=== PATIENT | female | born 1980 | race Caucasian/White ===

== ENCOUNTER 2018-10-09 04:53 | Inpatient (IN) | payer MEDICAID ==
[2018-10-09] MEDS ORDERED: CARBOPROST 250 MCG INJ IM (06:30)
[2018-10-09] MEDS ORDERED: METHYLERGONOVINE 0.2 MG INJ IM (06:30)
[2018-10-09] MEDS ORDERED: LIDOCAINE 1% (MPF) 30 ML INJ INJ (06:30)
[2018-10-09] MEDS ORDERED: OXYTOCIN 30 UNITS/LR 500 ML IV (06:30)
[2018-10-09] MEDS ORDERED: MISOPROSTOL 200 MCG TAB PR (06:30)
[2018-10-09] MEDS ORDERED: BUTORPHANOL 2 MG INJ IV (06:30)
[2018-10-09] MEDS ORDERED: IBUPROFEN 600 MG TAB PO (06:30)
[2018-10-09] MEDS: LACTATED RINGER'S 1,000 ML IV ×2 (06:56→14:54)
[2018-10-09 07:04] LABS: ADD MAN DIFF? NO
[2018-10-09 07:13] LABS: BASOPHILS % 0.3 % (0.0-2.0); EOSINOPHILS % 0.3 % (0.0-7.0); HEMATOCRIT 38.1 % (37.0-47.0); HEMOGLOBIN 12.9 g/dl (12.0-16.0); LYMPHOCYTES # 1.3 10^3/ul (0.8-2.9); LYMPHOCYTES % 11.4 % (15.0-51.0); MEAN CORPUSCULAR HEMOGLOBIN 32.3 pg (29.0-33.0); MEAN CORPUSCULAR HGB CONC 33.9 g/dl (32.0-37.0); MEAN CORPUSCULAR VOLUME 95.3 fl (82.0-101.0); MONOCYTE # 0.6 10^3/ul (0.3-0.9); MONOCYTES % 5.2 % (0.0-11.0); NEUTROPHIL # 9.2 10^3/ul (1.6-7.5); NEUTROPHILS % 81.6 % (39.0-77.0); PLATELET COUNT 259 10^3/UL (140-415); RED CELL DISTRIBUTION WIDTH 13.4 % (11.5-14.5)
[2018-10-09 07:13] LABS: WHITE BLOOD COUNT 11.3 10^3/ul (4.8-10.8)
[2018-10-09 07:45] LABS: INR 0.87; PROTIME 11.9 Sec (11.9-14.9); PT RATIO 0.9
[2018-10-09 07:46] LABS: PARTIAL THROMBOPLASTIN TIME 25.1 Sec (23.0-35.0)
[2018-10-09 09:47] LABS: HEPATITIS B SURFACE ANTIGEN NEGATIVE (NEGATIVE)
[2018-10-09] MEDS ORDERED: FENTAnyl 2MCG/ML-ROPIV 0.2% 100 ML (15:40)
[2018-10-09] MEDS ORDERED: DIPHENHYDRAMINE 50 MG INJ IV (16:00)
[2018-10-09] MEDS ORDERED: NALOXONE (0.4 MG/ML) INJ IV (16:00)
[2018-10-09] MEDS ORDERED: ONDANSETRON 4 MG INJ IV (16:00)
[2018-10-09] MEDS ORDERED: FENTAnyl 2MCG/ML-ROPIV 0.2% 100 ML BAG EPI (16:00)
[2018-10-09] MEDS: OXYTOCIN 30 UNITS/LR 500 ML IV ×3 (16:39→22:02)
[2018-10-09] MEDS: MINERAL OIL LIGHT 10 ML VIAL TOP (20:00)
[2018-10-09] MEDS: AMPICILLIN 2 GM/NS (PMX) 100 ML IV (20:16)
[2018-10-09 20:53] LABS: RAPID PLASMA REAGIN NONREACTIVE (NR)
[2018-10-09] MEDS: DEXTROSE 5%-LR 1,000 ML IV (23:45)
[2018-10-10] MEDS ORDERED: MISOPROSTOL 200 MCG TAB PR
[2018-10-10] MEDS ORDERED: ZOLPIDEM 5 MG TAB PO
[2018-10-10] MEDS ORDERED: ONDANSETRON 4 MG INJ IV
[2018-10-10] MEDS ORDERED: CARBOPROST 250 MCG INJ IM
[2018-10-10] MEDS ORDERED: ACETAMINOPHEN 325 MG TAB PO
[2018-10-10] MEDS ORDERED: OXYTOCIN 30 UNITS/LR 500 ML IV
[2018-10-10] MEDS ORDERED: OXYCODONE/ASPIRIN (4.88/325) TAB PO
[2018-10-10] MEDS ORDERED: METHYLERGONOVINE 0.2 MG INJ IM
[2018-10-10] MEDS ORDERED: DIPHENHYDRAMINE 50 MG INJ IV
[2018-10-10] MEDS: IBUPROFEN 600 MG TAB PO ×4 (00:33→17:56)
[2018-10-10] MEDS: BENZOCAINE 20% 56 ML SPRAY TOP (00:33)
[2018-10-10] MEDS: WITCH HAZEL/GLYCERIN PAD PR (00:33)
[2018-10-10] MEDS: DIBUCAINE 1% 30 GM OINT TOP (00:34)
[2018-10-10] MEDS: LACTATED RINGER'S 1,000 ML IV* ×2 (02:06→07:45)
[2018-10-10] MEDS: LANOLIN HPA 1 PKT TOP (06:14)
[2018-10-10 08:29] LABS: ADD MAN DIFF? NO
[2018-10-10 08:35] LABS: WHITE BLOOD COUNT 13.4 10^3/ul (4.8-10.8)
[2018-10-10 08:35] LABS: BASOPHILS % 0.1 % (0.0-2.0); EOSINOPHILS % 0.2 % (0.0-7.0); HEMATOCRIT 31.4 % (37.0-47.0); HEMOGLOBIN 10.6 g/dl (12.0-16.0); LYMPHOCYTES # 1.4 10^3/ul (0.8-2.9); LYMPHOCYTES % 10.8 % (15.0-51.0); MEAN CORPUSCULAR HEMOGLOBIN 32.3 pg (29.0-33.0); MEAN CORPUSCULAR HGB CONC 33.8 g/dl (32.0-37.0); MEAN CORPUSCULAR VOLUME 95.7 fl (82.0-101.0); MEAN PLATELET VOLUME 10.4 fl (7.4-10.4); MONOCYTES % 7.1 % (0.0-11.0); NEUTROPHIL # 10.9 10^3/ul (1.6-7.5); NEUTROPHILS % 81.1 % (39.0-77.0); PLATELET COUNT 223 10^3/UL (140-415); RED BLOOD COUNT 3.28 10^6/ul (4.20-5.40); RED CELL DISTRIBUTION WIDTH 13.2 % (11.5-14.5)
[2018-10-10] MEDS: SENNA/DOCUSATE NA (8.6MG/50MG) TAB PO (11:19)
[2018-10-10] MEDS: PRENATAL VITAMIN PO (11:19)
[2018-10-11] MEDS: IBUPROFEN 600 MG TAB PO ×3 (00:01→11:50)
[2018-10-11] MEDS: DIPHTH/TET/ACEL PERTUSS (ADULT) 0.5 ML VIAL IM* (08:38)
[2018-10-11] MEDS: PRENATAL VITAMIN PO (08:38)
[2018-10-11] MEDS: MEASLES,MUMPS,RUBELLA VACCINE INJ SC* (09:00)
[2018-10-11] MEDS: INFLUENZA VIRUS VACCINE 0.5 ML (DISPENSING) IM* (13:58)
[2018-10-12 12:16] LABS: RUBELLA ANTIBODY - IGM <20.00 AU/mL
== END 2018-10-11 14:45 | disposition home or self-care (01) | DRG 807 ==
LOC: OBT 04:53 → L-D 04:57 → OBT 06:00 → L-D 06:00 → PP1 22:55
PROVIDERS: Obstetrics & Gynecology
PROC: 10E0XZZ Delivery of Products of Conception, External Approach (ICD-10-PCS; principal; 2018-10-09)
PROC: 0HQ9XZZ Repair Perineum Skin, External Approach (ICD-10-PCS; 2018-10-09)
DX: O70.0 First degree perineal laceration during delivery (principal); Z37.0 Single live birth; Z3A.38 38 weeks gestation of pregnancy; Z23 Encounter for immunization
CPT/HCPCS: 62319; 85025; 85610; 85730; 86592; 86762; 86850; 86900; 86901; 87340; 90686; 90715